=== PATIENT | male | born 1985 ===

== ENCOUNTER 2017-10-08 09:57 | Emergency (ER) | payer OTHER ==
[2017-10-08 10:08] VITALS: O2SAT 99
[2017-10-08] MEDS ORDERED: Tdap Vaccine 0.5 ml Vial (10-64 yrs) IM ONE ×2 (11:05→11:57)
[2017-10-08] MEDS ORDERED: Sodium Chloride 0.9% 1,000 ML IV STA (11:05)
[2017-10-08] MEDS ORDERED: Morphine 4 MG/ML VIAL IVP STA (11:05)
--- NOTE | 2017-10-08 11:34 | RAD ---
PROCEDURE: Left ring finger radiographs. HISTORY: trauma COMPARISON: None. TECHNIQUE: AP radiograph of the left hand, as well as spot oblique and lateral images of left ring finger were obtained. FINDINGS: LEFT RING FINGER: No acute fracture. JOINTS: Ulnar and dorsal dislocation of the 4th digit at the level of the proximal interphalangeal joint. SOFT TISSUES: Normal. OTHER FINDINGS: None. IMPRESSION: Ulnar and dorsal dislocation of the 4th digit at the level of the proximal interphalangeal joint.
[2017-10-08] MEDS ORDERED: Lidocaine 1% Inj (20ml) IJ ONE (11:42)
--- NOTE | 2017-10-08 11:45 | ED PDOC ---
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 states earlier today while at work he was using a drill. States he was using an oversized gloved on his L hand. States that glove got caught in the drill and his L 4th digit was cut in the process. Denies numbness, tingling, other injury. Past Medical History Reviewed: Historical Data, Nursing Documentation, Vital Signs Vital Signs: Last Vital Signs Temp 98 F 10/08/17 10:19 Pulse 90 10/08/17 10:19 Resp 18 10/08/17 10:19 BP 158/82 H 10/08/17 10:19 Pulse Ox 99 10/08/17 14:20 - Surgical History Surgical History: No Surg Hx - Family History Family History: States: No Known Family Hx - Home Medications Home Medications: Ambulatory Orders Medication Instructions Recorded Cephalexin [cephalexin] 500 mg PO Q6 #28 cap 10/08/17 - Allergies Allergies/Adverse Reactions: Allergies Allergy/AdvReac Type Severity Reaction Status Date / Time No Known Allergies Allergy Verified 10/08/17 10:18 Review of Systems ROS Statement: Except As Marked, All Systems Reviewed And Found Negative Physical Exam - Physical Exam Appears: Positive for: Well, Non-toxic, No Acute Distress Skin: Positive for: Normal Color, Warm. Negative for: Rash Pulses-Radial (L): 2+ Pulses-Radial (R): 2+ Extremity: Positive for: Other (L 4th digit with deformity at PIP with open wound and bone and tendon exposure noted; cap refill < 2 seconds; distal sensation intact) Neurologic/Psych: Positive for: Alert, Oriented - Laboratory Results Result Diagrams: 10/08/17 11:50 10/08/17 11:50 - ECG O2 Sat by Pulse Oximetry: 99 - Progress ED Course And Treament: Pt. evaluated by Dr. Hankins. Labs, morphine 2mg IV, zofran 4mg IV, IV NS hydration, Unasyn 3gm IV, NPO ordered. L 4th digit x-ray: dislocation at PIP; no fx Case d/w Dr. Hankins who recommends reduction of dislocation. Digital photos were sent to Dr. Hankins. After reduction of finger Dr. Hankins was contacted and informed of post reduction examination and recommends wound closure with 4-0 nylon, f/u in his office on Saturday, and for pt. to be dc'd with Rx for Keflex. As per Dr. Hankins pt. does not require irrigation in OR. Case d/w Dr. Hankins agrees with recommendation but adds to have pt. f/u in ED in 48 hours for wound check in addition to f/u with Dr. Hankins on Saturday. Plan and care d/w pt. who agrees. Verbalized understanding of necessary f/u. Pt. 's cousin at bedside as well. Finger was immobilized in aluminum finger splint by Ed, REFRIGERATING OILER. Procedures - Time-Out Type of Procedure: reduction of finger dislocation Site of Procedure: L 4th digit Correct Patient (with visual ID + MR# on ID Band): Yes Correct Procedure: Yes Correct Site Marked: Yes X-Ray Marked: Yes PA/Tech: Kelly - Joint Reduction Reduction Attempts: 1 (Wound irrigated with 2000cc's of NS prior to reduction) Pre-Procedure NV Exam: Yes (Distal sensation intact; cap refill < 2 seconds; no active bleeding) Post Joint Reduction Film: joint reduced Progress: Post reduction examination: Distal sensation intact; cap refill < 2 seconds; no active bleeding; FROM actively of L 4th PIP Disposition - Clinical Impression Clinical Impression: Open dislocation of interphalangeal joint of finger of left hand, Finger laceration - Patient ED Disposition Is Patient to be Admitted: No - Disposition Referrals: Steven Arcos [Outside] Luan Hankins MD [Medical Doctor] - Disposition: Routine/Home Disposition Time: 14:17 Condition: IMPROVED Additional Instructions: RETURN TO ED ON 10/10/2017 FOR WOUND CHECK WITHOUT FAIL GO TO DR. HANKINS'S (HAND SURGEON) OFFICE ON 10/11/2017 WITHOUT FAIL Prescriptions: Cephalexin [cephalexin] 500 mg PO Q6 #28 cap Instructions: Wound Care (DC), Laceration Repair With Stitches (DC), Finger Dislocation Forms: Steven Villagomez (Cuban), [facility] ED School/Work Excuse Print Language: AUSTRALIAN Procedure: Wound Repair - Time Performed Time Performed: 13:45 - Time Out Time Out: Side verified, Site verified, Patient ID confirmed, Sterile procedures obs. - Procedure Procedure: Wound Repair: Wound irrigated with 1000cc's of NS - Consent Obtained Consent obtained: Emergent consent implied - Performed by Performed by: Mid-level Provider - Indications Indication(s):: Laceration - Location Location:: Left Finger:: Ring Shape:: Linear Dimensions Length cm: 1 Depth:: Epidermis - Anesthetic Technique Anesthetic Technique: Regional block, Intravenous pain meds Local/Regional Anesthetic:: Lidocaine 1% - Debris Debris:: None - Complexity Complexity:: Simple (one layer) - Wound repair method Sutures:: #, Size (4-0), Type (prolene), Technique (simple interrupted) - Patient tolerated procedure Patient Tolerated Procedure:: Well (No active bleeding; FROM actively of L 4th PIP)
[2017-10-08] MEDS ORDERED: Lidocaine Hydrochloride 1% 10 ML ONE (11:55)
[2017-10-08] MEDS ORDERED: Povidone Iodine Topical 10% Sol ONE (11:55)
[2017-10-08 11:58] LABS: BASO % 0.5 % (0.0-2.0); EOS # 0.1 K/uL (0.0-0.7); EOS % 0.8 % (0.0-4.0); HEMOGLOBIN 13.5 g/dL (12.0-18.0); LYMPH # 1.8 K/uL (1.0-4.3); LYMPH % 24.1 % (20.0-40.0); MEAN CELL VOLUME 85.5 fl (80.0-94.0); MEAN CORPUSCULAR HEMOGLOBIN 27.9 pg (27.0-31.0); MEAN CORPUSCULAR HGB CONC 32.7 g/dL (33.0-37.0); MEAN PLATELET VOLUME 9.4 fl (7.2-11.7); MONO # 0.6 K/uL (0.0-0.8); MONO % 7.9 % (0.0-10.0); NEUT # 5.1 K/uL (1.8-7.0); NEUT % 66.7 % (50.0-75.0); NRBC % 0.1 % (0.0-0.0); RBC 4.83 Mil/uL (4.40-5.90); RED CELL DISTRIBUTION WIDTH 13.6 % (11.5-14.5); WHITE BLOOD COUNT 7.6 K/uL (4.8-10.8)
[2017-10-08] MEDS ORDERED: Morphine 4 MG/ML VIAL ONE (11:58)
[2017-10-08 12:12] LABS: PARTIAL THROMBOPLASTIN TIME 29.3 Seconds (25.6-37.1); PROTHROMBIN TIME 10.7 Seconds (9.8-13.1)
[2017-10-08 12:16] LABS: ALB/GLOB RATIO 1.3 (1.0-2.1); ALBUMIN 4.6 g/dL (3.5-5.0); ALT/SGPT 32 U/L (21-72); AST/SGOT 24 U/L (17-59); BLOOD UREA NITROGEN 18 mg/dl (9-20); CALCIUM 9.4 mg/dL (8.4-10.2); GFR AFRICAN-AMERICAN > 60; GFR NON-AFRICAN AMERICAN > 60
--- NOTE | 2017-10-08 12:56 | RAD ---
PROCEDURE: Left ring finger radiographs. HISTORY: post reduction COMPARISON: Left hand radiographs performed approximately 1 hour prior. TECHNIQUE: AP radiograph of the left hand, as well as spot oblique and lateral images of left ring finger were obtained. FINDINGS: There has been interval reduction of the previously described 4th digit dislocation with osseous components in anatomic alignment. No acute fracture is evident. IMPRESSION: Interval reduction of the previously described 4th digit dislocation.
[2017-10-08 14:38] VITALS: BP 110/66; PULSE 76; RESP 16; TEMP 98.7
== END 2017-10-08 14:59 | disposition home or self-care (01) ==
LOC: H.ER 09:57
DX: S63.275A Dislocation of unspecified interphalangeal joint of left ring finger, initial encounter (principal); W29.8XXA Contact with other powered hand tools and household machinery, initial encounter
CPT/HCPCS: 29130; 73140; 80053; 85025; 85610; 85730; 86850; 86900; 90471; 90715; 96374; 96375; 99285; J0295; J2270; J2405; J7040

== ENCOUNTER 2017-10-10 16:41 | Emergency (ER) | payer OTHER ==
[2017-10-10 17:00] VITALS: BP 131/86; PULSE 68; RESP 16; TEMP 98.5; O2SAT 100
--- NOTE | 2017-10-10 17:19 | ED PDOC ---
HPI: Wound Care - HPI Time Seen by Provider: 10/10/17 17:03 Chief Complaint (Nursing): Wound Check Chief Complaint (Provider): Wound Check History Per: Patient, Family (family at bedside translating in norwegian for patient) Onset/Duration Of Symptoms: Days (x2) Current Symptoms Are (Timing): Still Present Additional Complaint(s): 32 year old male presents to the emergency department for wound check of a sutured laceration. Patient was seen here 2 days ago and had sutures placed in the left hand. He denies any drainage or redness at the site. No fever or chills. Patient has been taking his Keflex as prescribed. Motrin has helped the pain. PMD: none Past Medical History Reviewed: Historical Data, Nursing Documentation, Vital Signs Vital Signs: Last Vital Signs Temp 98.5 F 10/10/17 16:57 Pulse 68 10/10/17 16:57 Resp 16 10/10/17 16:57 BP 131/86 10/10/17 16:57 Pulse Ox 100 10/10/17 16:57 - Medical History PMH: No Chronic Diseases - Surgical History Surgical History: No Surg Hx - Family History Family History: States: No Known Family Hx - Living Arrangements Living Arrangements: With Family - Social History Current smoker - smoking cessation education provided: No Alcohol: None Drugs: Denies - Immunization History Hx Tetanus Toxoid Vaccination: Yes - Home Medications Home Medications: Ambulatory Orders Medication Instructions Recorded Cephalexin [cephalexin] 500 mg PO Q6 #28 cap 10/08/17 - Allergies Allergies/Adverse Reactions: Allergies Allergy/AdvReac Type Severity Reaction Status Date / Time No Known Allergies Allergy Verified 10/08/17 10:18 Review of Systems ROS Statement: Except As Marked, All Systems Reviewed And Found Negative Constitutional: Negative for: Fever, Chills Musculoskeletal: Positive for: Other (wound check of left hand laceration) Physical Exam - Reviewed Nursing Documentation Reviewed: Yes Vital Signs Reviewed: Yes - Physical Exam Appears: Positive for: Well, Non-toxic, No Acute Distress Head Exam: Positive for: ATRAUMATIC, NORMAL INSPECTION, NORMOCEPHALIC Skin: Positive for: Normal Color. Negative for: Rash Eye Exam: Positive for: Normal appearance Extremity: Positive for: Other (Sutured laceration noted to palmar aspect of proximal left 4th digit, sutures intact, no acute infection, normal distal sensation) Neurologic/Psych: Positive for: Alert, Oriented - ECG O2 Sat by Pulse Oximetry: 100 (RA) Pulse Ox Interpretation: Normal Medical Decision Making Medical Decision Making: Clinical Impression: Wound check Patient advised to continue antibiotics and pain medications as prescribed. Finger splint was re-applied today. Patient was referred to Dr. Hankins on his last visit, however he states the visit will cost him $300. Patient lives in [facility] and instead is going to talk to his employer about following up with a hand specialist or orthopedist through worker's compensation in [facility]. Scribe Attestation: Documented by Yady Encarnacion, acting as a scribe for Mariana Barrow PA-C Provider Scribe Attestation: All medical record entries made by the Scribe were at my direction and personally dictated by me. I have reviewed the chart and agree that the record accurately reflects my personal performance of the history, physical exam, medical decision making, and the department course for this patient. I have also personally directed, reviewed, and agree with the discharge instructions and disposition. Disposition - Clinical Impression Clinical Impression: Encounter for wound re-check, Open dislocation of interphalangeal joint of finger of left hand, Finger laceration - Patient ED Disposition Is Patient to be Admitted: No Counseled Patient/Family Regarding: Diagnosis, Need For Followup - Disposition Referrals: Luan Hankins MD [Medical Doctor] - Disposition: Routine/Home Disposition Time: 17:50 Condition: STABLE Additional Instructions: Keep wound clean and dry. Continue prescribed medications. 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
== END 2017-10-10 17:57 | disposition home or self-care (01) ==
LOC: H.ER 16:41
DX: Z48.00 Encounter for change or removal of nonsurgical wound dressing (principal)

== ENCOUNTER 2017-11-07 16:18 | Emergency (ER) | payer OTHER ==
[2017-11-07 16:25] VITALS: BP 150/91; PULSE 79; RESP 16; TEMP 97.7; O2SAT 97
--- NOTE | 2017-11-07 16:55 | ED PDOC ---
HPI: Wound Care - HPI Time Seen by Provider: 11/07/17 16:34 Chief Complaint (Nursing): Suture/Staple Removal Chief Complaint (Provider): Suture Removal History Per: Patient, Family (cousin at bedside is translating in macedonian for patient) Additional Complaint(s): 32 year old male presents to the emergency department for suture removal of laceration to left fourth digit. Sutures were placed on October 07 and patient had dislocation which was reduced in the ED on the same day. Patient states he cannot bend affected digit. He denies any active drainage, fever or chills to sutured wound. PMD: none Past Medical History Reviewed: Historical Data, Nursing Documentation, Vital Signs Vital Signs: Last Vital Signs Temp 97.7 F 11/07/17 16:23 Pulse 79 11/07/17 16:23 Resp 16 11/07/17 16:23 BP 150/91 H 11/07/17 16:23 Pulse Ox 97 11/07/17 16:23 - Medical History PMH: No Chronic Diseases - Surgical History Surgical History: No Surg Hx - Family History Family History: States: No Known Family Hx - Living Arrangements Living Arrangements: With Family - Social History Current smoker - smoking cessation education provided: No Alcohol: None Drugs: Denies - Immunization History Hx Tetanus Toxoid Vaccination: Yes - Home Medications Home Medications: Ambulatory Orders Medication Instructions Recorded Cephalexin [cephalexin] 500 mg PO Q6 #28 cap 10/08/17 - Allergies Allergies/Adverse Reactions: Allergies Allergy/AdvReac Type Severity Reaction Status Date / Time No Known Allergies Allergy Verified 11/07/17 16:23 Review of Systems ROS Statement: Except As Marked, All Systems Reviewed And Found Negative (As per HPI, otherwise negative) Constitutional: Negative for: Fever Musculoskeletal: Positive for: Other (suture removal from laceration to left 4th digit) Physical Exam - Reviewed Nursing Documentation Reviewed: Yes Vital Signs Reviewed: Yes - Physical Exam Appears: Positive for: Well, Non-toxic, No Acute Distress Skin: Positive for: Normal Color. Negative for: Rash Eye Exam: Positive for: Normal appearance Extremity: Positive for: Other (Well-healed sutured laceration to the palmar aspect of left fourth digit proximally, decreased range of motion of the affected digit, no infection noted). Negative for: Normal ROM Neurologic/Psych: Positive for: Alert, Oriented (x3) - ECG O2 Sat by Pulse Oximetry: 97 (RA) Pulse Ox Interpretation: Normal Medical Decision Making Medical Decision Making: Time: 1650 Initial Impression: 32 year old male here for suture removal Plan: --4 sutures removed without difficulty. Wound is well healed, no infection noted. DOC discussed with patient the importance of follow-up with hand specialist. Referral provided. Scribe Attestation: Documented by Arabella Ahumada, acting as a scribe for Mariana Barrow PA-C. Provider Scribe Attestation: All medical record entries made by the Scribe were at my direction and personally dictated by me. I have reviewed the chart and agree that the record accurately reflects my personal performance of the history, physical exam, medical decision making, and the department course for this patient. I have also personally directed, reviewed, and agree with the discharge instructions and disposition. Disposition - Clinical Impression Clinical Impression: Removal of suture - Patient ED Disposition Is Patient to be Admitted: No Counseled Patient/Family Regarding: Diagnosis, Need For Followup - Disposition Referrals: Richardson Patel MD [Staff Provider] - Disposition: Routine/Home Disposition Time: 17:38 Condition: STABLE Additional Instructions: Keep wound clean and dry. Follow-up as soon as possible with hand specialist. Instructions: Stitches Removal Forms: [employer] (Welsh) Print Language: ARABIC
== END 2017-11-07 18:02 | disposition home or self-care (01) ==
LOC: H.ER 16:18
DX: Z48.02 Encounter for removal of sutures (principal)